=== PATIENT | male | born 1980 | race Caucasian/White ===

== ENCOUNTER 2019-07-23 11:09 | Emergency (ER) | payer OTHER, SELFPAY ==
--- NOTE | 2019-07-23 11:15 | ED.URI ---
HPI - URI/Sore Throat General Chief Complaint: Upper Respiratory Infection Stated Complaint: sore throat/congestion Time Seen by Provider: 07/23/19 11:15 Source: patient and RN notes reviewed History of Present Illness HPI Narrative: Patient is a 38-year-old male that presents the urgent care with complaints of congestion, fever, sore throat. Patient states that started yesterday and his daughter was diagnosed with strep this morning at her PCP. Patient has been using Flonase and Zyrtec as prescribed from his ENT. No other acute complaints. No acute distress noted. Patient read the plan of care. Related Data Home Medications Medication Instructions Recorded Confirmed cetirizine [Zyrtec] 10 mg PO DAILY 07/23/19 07/23/19 omeprazole 40 mg PO DAILY 07/23/19 07/23/19 Allergies Allergy/AdvReac Type Severity Reaction Status Date / Time No Known Allergies Allergy Unverified 07/23/19 11:20 Review of Systems Review of Systems: Narrative: CONSTITUTIONAL: Reports a fever EYES: Denies visual changes, redness, or discharge. ENT: Reports of sore throat and congestion CARDIOVASCULAR: Denies chest pain, palpitations, or edema. RESPIRATORY: Denies cough or dyspnea. GASTROINTESTINAL: Denies abdominal pain, nausea, vomiting, or diarrhea. GENITOURINARY: Denies dysuria or hematuria. SKIN: Denies rash or itching. MUSCULOSKELETAL: Denies back pain, joint pain, or myalgia. NEUROLOGIC: Denies headache, numbness, or weakness. All other systems reviewed are negative, except as documented in HPI. PMFSH Comments At the time of my signature, I reviewed and agree with the nursing past medical, surgical, social, and family history. There is no relevant family history pertinent to the patient complaint. Exam Narrative: Exam Narrative: GENERAL: This is a well-nourished, well-developed patient, in no apparent distress. HEAD: normocephalic, atraumatic. EYES: PERRL. Sclera clear/white. Vision is grossly intact. EARS: External ears normal, auditory canals clear and without drainage, TMs normal without perforation. Hearing grossly intact. NOSE: External nose normal with no obvious nasal discharge, nares without redness, no rhinorrhea. THROAT: Mucous membranes moist, mild erythema noted posterior oropharynx. Absent tonsils, adenoids, uvula NECK: Neck supple CARDIOVASCULAR: Regular rate and rhythm without murmurs, gallops, or rubs. RESPIRATORY: Clear to auscultation. Breath sounds equal bilaterally. No wheezes, rales, or rhonchi. SKIN: warm, intact with no suspicious lesions or rash, good texture and turgor. NEURO: awake, alert, and oriented to person, place and time. There were no obvious focal neurologic abnormalities. EXTREMITIES: No clubbing, cyanosis, or edema. Course Vital Signs Vital signs: Vital Signs Temperature 97.3 F L 07/23/19 11:21 Pulse Rate 77 07/23/19 11:21 Respiratory Rate 18 07/23/19 11:21 Blood Pressure 116/73 07/23/19 11:21 Pulse Oximetry 98 07/23/19 11:21 Temperature 97.3 F L 07/23/19 11:21 Pulse Rate 77 07/23/19 11:21 Respiratory Rate 18 07/23/19 11:21 Blood Pressure 116/73 07/23/19 11:21 Pulse Oximetry 98 07/23/19 11:21 Reviewed MDM - URI/Sore Throat MDM Narrative Medical decision making narrative: Reviewed lab results with the patient. He is aware that strep swab was negative. Educated him on culture we will call within 72 hours if culture is positive and antibiotics are necessary. Advised patient to use Flonase nasal spray and continue Zyrtec as directed. Use Tylenol/ibuprofen as needed for fever and headache. Follow-up with PCP within 2 to 5 days if worsening symptoms or failure to improve. Differential Diagnosis Differential diagnosis: Likely upper respiratory infection, otitis media, sinusitis, bronchitis, influenza and pharyngitis Lab Data Attestation: I reviewed the patient's lab results. Labs: Strep Screen Presumptive Negative *(Reference Range: Negative
[2019-07-23 11:21] VITALS: BP 116/73; PULSE 77; RESP 18; TEMP 36.3; O2SAT 98
== END 2019-07-23 11:59 | disposition home or self-care (01) ==
PROVIDERS: Emergency Provider Nurse Practitioner Family; PCP Family Medicine
DX: J02.9 Acute pharyngitis, unspecified (principal)
CPT/HCPCS: 87081; 87880; 99213; G0463

== ENCOUNTER 2019-07-26 11:34 | Emergency (ER) | payer OTHER, SELFPAY ==
[2019-07-26 12:10] VITALS: BP 117/80; PULSE 90; RESP 20; TEMP 37.6; O2SAT 98
--- NOTE | 2019-07-26 12:54 | ED.URI ---
HPI - URI/Sore Throat General Chief Complaint: Upper Respiratory Infection Stated Complaint: pos sinus infection Time Seen by Provider: 07/26/19 12:54 Source: patient Mode of arrival: ambulatory Limitations: no limitations History of Present Illness HPI Narrative: A 38 y/o male, who is a nonsmoker/nondrinker, presents to with c/o a fever of 102 degrees F. Pt states that he has not been feeling well for about 10d or 1.5week and his symptoms worsened on Saturday (4 days ago). Pt has a PMHx of sinus problems s/p uvuloplasty, NSD correction--but is not on any wheezing medications. He reports an earache. Pt is positive for influenza type B. Onset (ago): week(s) (1) Consistency: progressively worsening Related Data Home Medications Medication Instructions Recorded Confirmed cetirizine [Zyrtec] 10 mg PO DAILY 07/23/19 07/26/19 omeprazole 40 mg PO DAILY 07/23/19 07/26/19 fluticasone propionate [Flonase 1 spray INTRANASAL BID 07/26/19 07/26/19 Allergy Relief] Allergies Allergy/AdvReac Type Severity Reaction Status Date / Time No Known Allergies Allergy Verified 07/26/19 12:09 Review of Systems Review of Systems: Narrative: General/Constitutional: Reports: 102 degree F fever; Denies: weight loss Eyes: Denies: Redness,discharge Ears/Nose/Throat: Reports: earache; Denies: Epistaxis,ear discharge Respiratory: Denies: Hemoptysis Gastrointestinal: Denies: Vomiting, Bleeding-rectal Skin: Denies: Lumps, eruption Neurologic: Denies: Focal Weakness,Sz Hematologic: Denies: Petechiae/Purpura Psychiatric: Denies: Suicidal ideation All systems reviewed & are unremarkable except as noted in HPI and below PMFSH Past Medical History Medical History (Updated 07/26/19 @ 13:52 by Tk Solis MD) Deviated septum GERD (gastroesophageal reflux disease) Sinus problem Thumb fracture Surgical History Surgical History (Updated 07/26/19 @ 13:08 by Beatrice Avendano) H/O nasal septoplasty Hx of tonsillectomy Social History Social History (Updated 07/26/19 @ 13:09 by Beatrice Avendano) Smoking status: Never smoker Alcohol intake: never Comments PCP: Dr. Cano At time of signature, agree with nursing past medical, surgical, social and family history. There is no relevant family history pertinent to the presenting complaint Exam Narrative: Exam Narrative: General Appearance: Well appearing, Well nourished, No distress EYE: PERRLA, EOMI, Conjunctiva clear Ears: External ear normal, Auditory canal normal, TM normal Nose: Normal nose, Rhinorrhea, Mucousal erythema Mouth/Throat: Normal appearing, Normal lips, MM moist, Uvuloplasty, Pharyngeal erythema Respiratory: Airway patent, No respiratory distress, Breath sounds equal, Clear to auscultation (no wheeze) Cardiovascular: RRR, No JVD Skin: Warm, Dry, Normal color Neurological: A&O x3, Speech clear, CN II-X intact Psychiatric: Normal mood, Normal affect Course Vital Signs Vital signs: Vital Signs Temperature 99.7 F H 07/26/19 12:10 Pulse Rate 90 07/26/19 12:10 Respiratory Rate 20 07/26/19 12:10 Blood Pressure 117/80 07/26/19 12:10 Pulse Oximetry 98 07/26/19 12:10 Temperature 99.7 F H 07/26/19 12:10 Pulse Rate 90 07/26/19 12:10 Respiratory Rate 20 07/26/19 12:10 Blood Pressure 117/80 07/26/19 12:10 Pulse Oximetry 98 07/26/19 12:10 MDM - URI/Sore Throat Lab Data Labs: Influenza A Screen Negative Reference Range: Negative Influenza B Screen Positive Reference Range: Negative Discharge Plan Discharge Clinical Impression: Influenza B, History of acute sinusitis Patient Disposition: Home, Self-Care Condition: Stable Instructions: Influenza (ED) Prescriptions: New azelastine 137 mcg (0.1 %) aerosol,spray 137 mcg NASAL Q12H Qty: 30 RF: 0 oseltamivir [Tamiflu] 75 mg capsule 75 mg PO Q12H 5 Days Qty: 10 RF: 0 codeine-guaifenesin 10-1
== END 2019-07-26 13:00 | disposition home or self-care (01) ==
PROVIDERS: Emergency Provider Emergency Medicine; PCP Family Medicine
DX: J11.1 Influenza due to unidentified influenza virus with other respiratory manifestations (principal)
CPT/HCPCS: 87804; 99213; G0463

== ENCOUNTER 2023-04-20 16:12 | Emergency (ER) | payer OTHER, SELFPAY ==
--- NOTE | 2023-04-20 16:17 | ED.URI ---
HPI - URI/Sore Throat General Chief Complaint: Upper Respiratory Infection Stated Complaint: Sore Throat,Congestion,Headache Time Seen by Provider: 04/20/23 16:17 Source: patient Mode of arrival: ambulatory Limitations: no limitations History of Present Illness HPI Narrative: Patient is a 42-year-old male that presents with congestion, sinus pressure, headache and sore throat for 10 days. Patient has tried [id number] sinus relief and Flonase with no relief. Patient has chronic sinus infections and had to sinus surgeries along with tonsils and adenoids. Also reports intermittent fevers. Denies any cough, nausea vomiting, diarrhea. Related Data Home Medications Medication Instructions Recorded Confirmed fluticasone propionate 50 1 spray intranasal BID 07/26/19 07/26/19 mcg/actuation nasal spray,suspension (Flonase Allergy Relief) Allergies Allergy/AdvReac Type Severity Reaction Status Date / Time No Known Allergies Allergy Verified 04/20/23 16:29 Review of Systems Review of Systems: All systems reviewed & are unremarkable except as noted in HPI and below Constitutional: Constitutional: Denies body ache(s), Denies chills, Denies fatigue, Reports fever(s), Reports headache(s), Denies malaise and Denies weakness Eyes: Eyes: Denies blurry vision, Denies itchy eyes and Denies loss of vision ENT: Denies otalgia, Reports headache(s), Reports nasal congestion, Denies sinus pain, Reports sinus pressure and Reports sore throat Cardiovascular: Cardiovascular: Denies chest pain, Denies irregular heart rhythm and Denies dyspnea Respiratory: Respiratory: Denies cough and Denies dyspnea Gastrointestinal: Gastrointestinal: Denies abdominal pain, Denies diarrhea, Denies nausea and Denies vomiting Musculoskeletal: Musculoskeletal: Denies back pain, Denies myalgias and Denies arthralgias Integumentary/Breasts: Skin/Breast: Denies pruritus and Denies rash Neurologic: Reports headache(s), Denies loss of vision and Denies weakness Psychiatric: Psychiatric: Reports no additional psychiatric complaints Endocrine: Endocrine: Denies fatigue Allergic/Immunologic: Allergic/Immunologic: Denies itchy eyes PMFSH Past Medical History Medical History Deviated septum GERD (gastroesophageal reflux disease) Sinus problem Thumb fracture Surgical History Surgical History H/O nasal septoplasty Hx of tonsillectomy Social History Social History Smoking status: Never smoker Alcohol intake: never Comments At time of signature, agree with nursing past medical, surgical, social and family history. There is no relevant family history pertinent to the presenting complaint. Exam Const: General: cooperative, healthy appearing, comfortable, no acute distress and well nourished Nutritional Appearance: well nourished Orientation/consciousness: patient oriented x3 Limitations: no limitations HENMT: Head: normal to inspection, normocephalic and atraumatic Ears: hearing grossly normal bilaterally, external ears normal, TM's normal bilaterally, EAC's normal and no periauricular adenopathy Face/Nose/Sinus: Normal external nose present, Abnormal mucous membranes and turbinates present erythematous bilateral and diffuse, normal facial exam, face symmetric and Facial tenderness on exam of face and sinuses Face and sinus: normal facial exam, sinuses nontender and face symmetric Mouth: Yes Normal oral and palatal mucosa present, Yes lip normal, Yes tongue normal, Yes Normal salivary glands and ducts present, Yes oropharynx normal and Yes moist mucous membranes Teeth and gingiva: dentition normal Throat: posterior oropharynx normal, tonsils normal and uvula midline Eyes: General: appearance normal, both eyes and all related structures Alignment and Position: alignment
[2023-04-20 16:23] VITALS: BP 143/94; PULSE 93; RESP 18; TEMP 36.6; O2SAT 99
== END 2023-04-20 16:40 | disposition home or self-care (01) ==
PROVIDERS: Emergency Provider Nurse Practitioner Family; PCP Orthopaedic Surgery
DX: J01.40 Acute pansinusitis, unspecified (principal); K21.9 Gastro-esophageal reflux disease without esophagitis
CPT/HCPCS: 99213; G0463